=== PATIENT | male | born 1965 | race Caucasian/White ===

== ENCOUNTER 2017-02-18 15:49 | Emergency (ER) | payer BC ==
[2017-02-18 16:08] VITALS: BMI 32.3
--- NOTE | 2017-02-18 16:19 | DR.GENAD ---
HPI - PCP Primary Care Physician: ELOY - Complaint/Symptoms Chief Complaint Doctors Comments: Patient admits to having problems with his blood pressure, when he checks it at the store it is elevated at times. He is followed by his physician every three months. He also states that he gets dizzy at times when his blood pressure is elevated. Chief Complaint:: PT C/O DIZZINESS WITH NAUSEA. PT STATES HE WAS FEELING IF HIS BLOOD PRESSURE WAS UP AND HAVING REALLY BAD INDEGESTION - Source History Provided: Patient - Mode of Arrival Mode of Arrival: EMS - Timing Onset of Chief Complaint: 02/18/17 PMH - PMH Past Medical History: Yes Past Medical History: Hypertension Past Surgical History: Yes Past Surgical History Comment: CALCIUM DEPOSIT IN LT LOWER LEG, NASAL AND FACIAL SURGERY, - Family History History of Family Medical Conditions: No - Social History Does patient currently use any type of tobacco product: Yes Have you used tobacco products in the last 12 months: Yes Type of Tobacco Use: Cigarettes Does any household member use tobacco: Yes Alcohol Use: Occasionally Do you use any recreational Drugs:: No Lives With: Family Lives Where: Home - infectious screening In the last 2 months have you had wt loss of >10#?: NO Have you had fever, night sweats or hemotysis?: No Have you traveled outside the country in the last 6 months?: No Isolation: Standard ROS - Review of Systems Eyes: No Symptoms Reported ENTM: No Symptoms Reported Respiratoy: No Symptoms Reported Cardiovascular: No Symptoms Reported Gastrointestinal/Abdominal: No Symptoms Reported Genitourinary: No Symptoms Reported Neurological: No Symptoms Reported Musculoskeletal: No Symptoms Reported Integumentary: No Symptoms Reported Hematologic/Lymphatic: No Symptoms Reported Endocrine: No Symptoms Reported Psychiatric: No Symptoms Reported All Other Systems: Reviewed and Negative PE - Vital Signs Vitals: Temperature 97.6 F Pulse Rate [Right Radial] 58 Pulse Rate 57 Respiratory Rate 18 Blood Pressure [Right Arm] 169/97 Blood Pressure 188/101 O2 Sat by Pulse Oximetry 95 - General Limitations: No Limitations General Appearance: Alert, In No Apparent Distress - Head Head Exam: Normal Inspection, Atraumatic - Eyes Eye exam: Normal Appearance, PERRL, EOMI - ENT ENT Exam: Normal Exam External Ear Exam: Normal External Inspection TM/Canal Exam: Bilateral Normal Nose Exam: Normal Nose Exam Mouth Exam: Normal Inspection Throat Exam: Normal Inspection - Neck Neck Exam: Normal Inspection - Chest Chest Inspection: Normal Inspection - Respiratory Respiratory Exam: Normal Lung Sounds Bilat Respiratory Exam: Bilateral Clear to Auscultation - Cardiovascular Cardiovascular Exam: Regular Rate - Abdominal Exam Abdominal Exam: Normal Inspection, Normal Bowel Sounds Abdominal Tenderness: negative: RUQ, RLQ, LUQ, LLQ, Epigastrium, Suprapubic, Diffuse, Mild, Moderate, Severe, Other - Extremities Extremities Exam: Normal Inspection, Full ROM - Back Back Exam: Normal Inspection - Neurologic Neurological Exam: Alert, Oriented X3, CN II-XII Intact - Psychiatric Psychiatric Exam: Normal Affect Course - Reevaluation 1st: Improved ROR - Labs Reviewed Result Diagrams: 02/18/17 15:50 02/18/17 15:50 Laboratory: WBC 6.7 X10^3/uL (3.6-10.0) 02/18/17 15:50 RBC 5.33 X10^6/uL (4.7-6.0) 02/18/17 15:50 Hgb 16.5 g/dL (13.5-18.0) 02/18/17 15:50 Hct 47.1 % (42.0-54.0) 02/18/17 15:50 MCV 88.4 fL (80.0-100.0) 02/18/17 15:50 MCH 30.9 pg (27.0-34.0) 02/18/17 15:50 MCHC 35.0 g/dL (33.0-35.0) 02/18/17 15:50 RDW 13.0 % (11.6-16.5) 02/18/17 15:50 Plt Count 206 X10^3/uL (150.0-450.0) 02/18/17 15:50 MPV 9.6 fL (7.4-11.0) 02/18/17 15:50 Neut % 65.1 % (42.0-75.0) 02/18/17 15:50 Lymph % 27.1 % (21.0-51.0) 02/18/17 15:50 [place] % 5.0 % (0.0-13.0) 02/18/17 15:50 Eos % 1.9 % (0.9-2.9) 02/18/17 15:50 Baso % 0.9 % (0.2-1.0) 02/18/17 15:50 Neut # 4.4 x10^3/uL (2.2-4.8) 02/18/17 15:50 Lymph # 1.8 X10^3/uL (1.3-2.9) 02/18/17 15:50 [place] # 0.3 x10^3/uL (0.3-0.8) 02/18/17 15:50 Eos # 0.1 x10^3/uL (0.0-0.2) 02/18/17 15:50 Baso # 0.1 X10^3/uL (0.0-0.1) 02/18/17 15:50 Absolute Nucleated RBC 0.0 /100WBC 02/18/17 15:50 INR Target Range - 02/18/17 15:50 INR 0.97 (0.8-1.3) 02/18/17 15:50 PTT 28.6 SECONDS (22.9-36.5) 02/18/17 15:50 PTT Comment - 02/18/17 15:50 Sodium 141 mmol/L (136-145) 02/18/17 15:50 Corrected Sodium 142 mmol/L (136-145) 02/18/17 15:50 Potassium 4.3 mmol/L (3.5-5.1) 02/18/17 15:50 Chloride 105 mmol/L (98-107) 02/18/17 15:50 Carbon Dioxide 27.4 mmol/L (21-32) 02/18/17 15:50 BUN 12 mg/dL (7-18) 02/18/17 15:50 Creatinine 1.16 mg/dL (0.70-1.30) 02/18/17 15:50 Est GFR (MDRD) Af Amer > 60 (>60) 02/18/17 15:50 Est GFR (MDRD) Non-Af > 60 (>60) 02/18/17 15:50 Glucose 134 mg/dL (65-99) H 02/18/17 15:50 Calcium 9.1 mg/dL (8.5-10.1) 02/18/17 15:50 Corrected Calcium TNP 02/18/17 15:50 Magnesium 2.3 mg/dL (1.7-2.9) 02/18/17 15:50 Total Bilirubin 0.70 mg/dL (0.2-1.0) 02/18/17 15:50 AST 19 Units/L (15-37) 02/18/17 15:50 ALT 18 Units/L (12-78) 02/18/17 15:50 Alkaline Phosphatase 107 Units/L (46-116) 02/18/17 15:50 Creatine Kinase 171 Units/L (39-308) 02/18/17 15:50 CK-MB (CK-2) 0.6 ng/mL (0-4.0) 02/18/17 15:50 CK/CKMB % Calc 0.4 % (<4) 02/18/17 15:50 Troponin I 0.00 ng/mL (0-1.5) 02/18/17 15:50 Total Protein 7.7 g/dL (6.4-8.2) 02/18/17 15:50 Albumin 4.5 g/dL (3.4-5.0) 02/18/17 15:50 Globulin 3.2 g/dL (2.5-4.5) 02/18/17 15:50 Albumin/Globulin Ratio 1.4 Ratio (1.1-2.1) 02/18/17 15:50 - XRAY XRAY Interpreted by: Radiologist (Chest: heart and mediastinal structures appear unremarkable. There is slight accentuation of the interstitial markings possible chronic. There are no pelural effusions. Osseous structures appear intact. 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
[2017-02-18 16:28] LABS: BASOPHILS # (AUTO) 0.1 X10^3/uL (0.0-0.1); BASOPHILS % (AUTO) 0.9 % (0.2-1.0); EOSINOPHILS # (AUTO) 0.1 x10^3/uL (0.0-0.2); EOSINOPHILS % (AUTO) 1.9 % (0.9-2.9); HEMATOCRIT 47.1 % (42.0-54.0); HEMOGLOBIN 16.5 g/dL (13.5-18.0); LYMPHOCYTES # (AUTO) 1.8 X10^3/uL (1.3-2.9); LYMPHOCYTES % (AUTO) 27.1 % (21.0-51.0); MEAN CORPUSCULAR HEMOGLOBIN 30.9 pg (27.0-34.0); MEAN CORPUSCULAR VOLUME 88.4 fL (80.0-100.0); MEAN PLATELET VOLUME 9.6 fL (7.4-11.0); MONOCYTES # (AUTO) 0.3 x10^3/uL (0.3-0.8); NEUTROPHILS # (AUTO) 4.4 x10^3/uL (2.2-4.8); NEUTROPHILS % (AUTO) 65.1 % (42.0-75.0); PLATELET COUNT 206 X10^3/uL (150.0-450.0); RED BLOOD COUNT 5.33 X10^6/uL (4.7-6.0); WHITE BLOOD COUNT 6.7 X10^3/uL (3.6-10.0)
[2017-02-18 16:32] LABS: BLOOD UREA NITROGEN 12 mg/dL (7-18); CALCIUM 9.1 mg/dL (8.5-10.1); CARBON DIOXIDE 27.4 mmol/L (21-32); CHLORIDE 105 mmol/L (98-107); COR NA(FOR HYPERGLY) 142 mmol/L (136-145); CREATININE 1.16 mg/dL (0.70-1.30); SODIUM 141 mmol/L (136-145); eGFR BLACK RACES > 60 (>60); eGFR NON BLACK RACES > 60 (>60)
--- NOTE | 2017-02-18 16:52 | RAD ---
History: Hypertension Study: Chest single view Findings: AP portable examination of chest is obtained at approximately 4:37 p.m.. Heart and mediasti nal structures appear unremarkable. There is slight accentuation of the interstitial markings possibl y chronic. There are no pleural effusions. Osseous structures appear intact. 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 Reported By:
[2017-02-18 16:53] LABS: CKMB % 0.4 % (<4); CREATINE KINASE 171 Units/L (39-308); CREATINE KINASE MB 0.6 ng/mL (0-4.0)
[2017-02-18 17:05] LABS: ALANINE AMINOTRANSFERASE 18 Units/L (12-78); ALBUMIN 4.5 g/dL (3.4-5.0); ALKALINE PHOSPHATASE 107 Units/L (46-116); ASPARTATE AMINO TRANSFERASE 19 Units/L (15-37); MAGNESIUM 2.3 mg/dL (1.7-2.9); TOTAL PROTEIN 7.7 g/dL (6.4-8.2)
[2017-02-18] MEDS ORDERED: ANTIVERT TAB 25 MG PO ONE (17:37)
[2017-02-18] MEDS ORDERED: ANTIVERT TAB 25 MG ONE (17:39)
[2017-02-18 18:13] VITALS: BP 180/110
== END 2017-02-18 18:20 | disposition home or self-care (01) ==
LOC: ER 15:56
DX: R42 Dizziness and giddiness (principal); J84.9 Interstitial pulmonary disease, unspecified
CPT/HCPCS: 36415; 71010; 80053; 82550; 82553; 83735; 84484; 85025; 85610; 85730; 93005; 93010; 96365; 99283; 99284; A4222